=== PATIENT | female | born 1950 | race Caucasian/White ===

== ENCOUNTER → 2016-09-27 | Outpatient (REF) | payer OTHER, BC | LOC: M LAB REF 12:05 | PROVIDERS: ATTEND Internal Medicine | DX: M10.9 Gout, unspecified (principal) ==

== ENCOUNTER → 2016-10-19 | Outpatient (REF) | payer OTHER, BC ==
[2016-10-19 12:26] LABS: CREATININE FOR GFR 1.13 MG/DL (0.55-1.02); GLOMERULAR FILTRATION RATE 51.6 (>45)
== END ==
LOC: M LABDRAW1 11:36
PROVIDERS: ATTEND Orthopaedic Surgery
DX: M77.11 Lateral epicondylitis, right elbow (principal)

== ENCOUNTER 2017-01-16 05:24 | Emergency (ER) | payer BC, OTHER ==
[~2017-01-16] VITALS: Ht 162.6 cm; Wt 93.2 kg
[2017-01-16] MEDS ORDERED: VENL150C43 (05:39)
[2017-01-16] MEDS ORDERED: ATEN50TA2 (05:39)
[2017-01-16] MEDS ORDERED: LEVE1INJ5 (05:39)
[2017-01-16] MEDS ORDERED: BUPR150T3 (05:39)
[2017-01-16] MEDS ORDERED: LOSA100T36 (05:39)
[2017-01-16] MEDS ORDERED: TRUL0.5I (05:39)
[2017-01-16] MEDS ORDERED: CLINDAMYCIN 150 MG CAP PO ONE (07:15)
[2017-01-16] MEDS ORDERED: PERCOCET 5MG/325MG TAB PO ONE (07:15)
[2017-01-16 08:24] LABS: BASO % 0.5 % (0.0-1.0); EOS # 0.1 K/mm3 (0.0-0.50); EOS % 1.2 % (0.0-3.0); LARGE UNSTAINED CELL # 0.1 K/mm3 (0.0-0.4); LARGE UNSTAINED CELL % 1.3 % (0.0-4.0); LYMPH % 9.5 % (24.0-44.0); MEAN CORPUSCULAR HEMOGLOBIN 27.7 pg (27.0-33.0); MEAN CORPUSCULAR HGB CONC 32.9 g/dl (32.0-36.5); MEAN CORPUSCULAR VOLUME 84.3 fl (80.0-96.0); MONO # 0.6 K/mm3 (0.0-0.8); MONO % 6.1 % (0.0-5.0); NEUTROPHILS # 7.6 K/mm3 (1.8-7.7); NEUTROPHILS % 81.4 % (36.0-66.0); PLATELET COUNT, AUTOMATED 236 k/mm3 (150-450); RED CELL DISTRIBUTION WIDTH 14.2 % (11.5-14.5); WHITE BLOOD COUNT 9.3 K/mm3 (4.0-10.0)
[2017-01-16] MEDS ORDERED: PERC5TAB12 PO (08:31)
[2017-01-16 08:36] LABS: ANION GAP 9 MEQ/L (8-16); BLOOD UREA NITROGEN 19 MG/DL (7-18); CALCIUM LEVEL 8.6 MG/DL (8.8-10.2); CARBON DIOXIDE LEVEL 24 MEQ/L (21-32); CHLORIDE LEVEL 109 MEQ/L (98-107); CREATININE FOR GFR 0.97 MG/DL (0.55-1.02); GLOMERULAR FILTRATION RATE > 60.0 (>45); GLUCOSE, FASTING 110 MG/DL (80-110); POTASSIUM SERUM 4.6 MEQ/L (3.5-5.1); SODIUM LEVEL 142 MEQ/L (136-145)
[2017-01-16] MEDS ORDERED: CLEO300C2 PO (08:39)
[2017-01-16 08:42] VITALS: BP 165/86
[2017-01-16 09:26] LABS: ERYTHROCYTE SEDIMENTATION RATE 13 mm/hr (0-30)
--- NOTE | 2017-01-16 11:13 | REP ---
Left ankle series: Four views. History: Pain and swelling. Findings: Four views of the left ankle demonstrate Achilles and plantar calcaneal spurring. There is advanced diffuse vascular calcification. Ankle mortise is intact. No fracture or subluxation is seen. 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 Soft tissue swelling is seen along the course of the Achilles tendon, question Achilles tendinopathy. Signed by Rangel Garcia MD 01/16/2017 12:33 P
== END 2017-01-16 08:55 | disposition home or self-care (01) ==
LOC: M ED 05:24
DX: M76.62 Achilles tendinitis, left leg (principal); L03.116 Cellulitis of left lower limb; E11.9 Type 2 diabetes mellitus without complications; E78.4 Other hyperlipidemia; Z87.891 Personal history of nicotine dependence

== ENCOUNTER → 2017-01-26 | Outpatient (REF) | payer OTHER ==
[~2017-01-26] MED LIST: ATEN50TA2; BUPR150T3; CLEO300C2 PO; LEVE1INJ5; LOSA100T36; PERC5TAB12 PO; TRUL0.5I; VENL150C43
== END ==
LOC: M LAB REF 14:22
PROVIDERS: ATTEND Internal Medicine
DX: M10.9 Gout, unspecified (principal)

== ENCOUNTER → 2017-02-21 | Outpatient (REF) | payer OTHER | LOC: M LAB REF 17:21 | PROVIDERS: ATTEND Internal Medicine | DX: M10.9 Gout, unspecified (principal) ==

== ENCOUNTER → 2017-03-16 | Outpatient (CLI) | payer OTHER ==
--- NOTE | 2017-03-16 09:26 | REPMRS ---
Patient History The patient states she had a clinical breast exam in January 2017. Patient is postmenopausal. Family history of unknown cancer in father. Benign lumpectomy of the right breast. Digital Mammo Screening Bilat: March 16, 2017 - Exam #: [id number] Bilateral CC and MLO view(s) were taken. Technologist: Yesy Vicenet, Technologist Prior study comparison: March 15, 2016, bilateral digital mammo screening bilat performed at [facility]. February 26, 2015, bilateral digital mammo screening bilat performed at [facility]. FINDINGS: There are scattered fibroglandular densities. There is a fairly symmetric fibroglandular pattern in both breasts. There has been no interval development of masses, areas of architectural distortion or clusters of microcalcifications typical of malignancy. ASSESSMENT: BI-RADS/ACR category 2 mammogram. Benign finding(s). Recommendation Routine screening mammogram of both breasts in 1 year (for women over age 40). This mammogram was interpreted with the aid of an FDA-approved computer-aided dectection system. Electronically Signed By: Marcus Phillips MD 03/16/17 [id number]
== END ==
LOC: M RAD 08:13
PROVIDERS: ATTEND Internal Medicine
DX: Z12.31 Encounter for screening mammogram for malignant neoplasm of breast (principal); Z78.0 Asymptomatic menopausal state

== ENCOUNTER → 2017-05-01 | Outpatient (REF) | payer OTHER | LOC: M LAB REF 13:54 | PROVIDERS: ATTEND Internal Medicine | DX: M10.9 Gout, unspecified (principal) ==

== ENCOUNTER 2017-12-23 14:58 | Emergency (ER) | payer MEDICARE, OTHER | END 2017-12-23 16:09 | disposition home or self-care (01) | LOC: M ED 14:58 | DX: M54.5 Low back pain (principal); M25.562 Pain in left knee; I10 Essential (primary) hypertension; E11.9 Type 2 diabetes mellitus without complications; F33.9 Major depressive disorder, recurrent, unspecified; Z79.899 Other long term (current) drug therapy; Z79.4 Long term (current) use of insulin; Z87.891 Personal history of nicotine dependence | CPT/HCPCS: 99283 ==

== ENCOUNTER → 2018-01-10 | Outpatient (REF) | payer MEDICARE, OTHER ==
[2018-01-10 19:23] LABS: C REACTIVE PROTEIN QUANTITATIV < 0.30 MG/DL (0.00-0.30)
[2018-01-10 19:23] LABS: RHEUMATOID FACTOR QUANT 32.1 IU/ML (<15.0)
[2018-01-10 19:34] LABS: ERYTHROCYTE SEDIMENTATION RATE 8 mm/hr (0-30)
[2018-01-12 14:46] LABS: ANTINUCLEAR ANTIBODIES DIRECT Negative (Negative)
== END ==
LOC: M LAB REF 17:29
DX: M79.643 Pain in unspecified hand (principal)
CPT/HCPCS: 86140

== ENCOUNTER → 2018-01-18 | Outpatient (REF) | payer MEDICARE, OTHER ==
[2018-01-20 00:06] LABS: CYCLIC CITRULLINATED PEPTIDE 8 units (0-19)
== END ==
LOC: M LAB REF 12:40
DX: M19.90 Unspecified osteoarthritis, unspecified site (principal)
CPT/HCPCS: 86200

== ENCOUNTER → 2018-05-02 | Outpatient (REF) | payer MEDICARE, OTHER ==
[2018-05-02 12:36] LABS: C REACTIVE PROTEIN QUANTITATIV < 0.30 MG/DL (0.00-0.30); RHEUMATOID FACTOR QUANT 28.9 IU/ML (<15.0)
[2018-05-03 13:04] LABS: URIC ACID 5.4 MG/DL (2.6-6.0)
== END ==
LOC: M LAB REF 12:05
DX: M19.90 Unspecified osteoarthritis, unspecified site (principal); M10.9 Gout, unspecified
CPT/HCPCS: 84550

== ENCOUNTER → 2018-09-11 | Outpatient (REF) | payer MEDICARE, OTHER ==
[~2018-09-11] MED LIST changes: +ACET-716 PO; +ATEN50TA2 PO; +IBUP80TA PO; +LEVE1INJ5 SC; -LOSA100T36; +LOSA100T50; +METF10004 PO; +METH1TAB40 PO; +OXYC1TAB15 PO; +TYLE500T78 PO
[2018-09-11 13:00] LABS: C REACTIVE PROTEIN QUANTITATIV < 0.30 MG/DL (0.00-0.30); RHEUMATOID FACTOR QUANT 19.2 IU/ML (<15.0)
== END ==
LOC: M LAB REF 12:14
PROVIDERS: ATTEND Internal Medicine
DX: M25.511 Pain in right shoulder (principal); M25.561 Pain in right knee

== ENCOUNTER → 2018-10-09 | Outpatient (REF) | payer MEDICARE, OTHER ==
[2018-10-09 19:15] LABS: PERCENT SATURATION 19.5 % (13.2-45.0)
== END ==
LOC: M LAB REF 18:23
PROVIDERS: ATTEND Internal Medicine
DX: Z01.812 Encounter for preprocedural laboratory examination (principal); D64.9 Anemia, unspecified; M17.11 Unilateral primary osteoarthritis, right knee

== ENCOUNTER → 2019-02-11 | Outpatient (REF) | payer MEDICARE, OTHER | LOC: M LAB REF 12:39 | PROVIDERS: ATTEND Internal Medicine | DX: M10.9 Gout, unspecified (principal) ==

== ENCOUNTER → 2019-08-12 | Outpatient (CLI) | payer MEDICARE, OTHER ==
--- NOTE | 2019-08-12 15:29 | REP ---
CT ABDOMEN AND PELVIS WITHOUT IV AND ORAL CONTRAST: HISTORY: Incisional hernia. Without obstruction. No comparison study. 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 The lung bases are clear on axial CT images. The liver is normal in size, homogeneous in texture. No abnormality is noted in the gallbladder. The spleen is unremarkable. Mitral annular calcification is noted in the heart. No adrenal lesion is seen on either side. No abnormality is noted in the pancreas. There is cortical atrophy involving the left kidney. There is a cyst at the left mid kidney peripherally measuring 3.7 cm in diameter. There is an intrarenal calculus in the lower pole of the left kidney which measures 7 mm in diameter. Heavy vascular calcification is noted at the origin of the renal artery on the left. The right kidney contains a faintly visible 1-2 mm calcification at mid pole level. No hydronephrosis is seen. No ureteral calculus is observed. No uterine or ovarian abnormality is seen. Urinary bladder is unremarkable. The patient is status post ventral hernia repair. There is a fluid collection consistent with a seroma anterior to the mesh repair in the supraumbilical region. Below this there is a ventral hernia transmitting unobstructed loops of large and small bowel. It appears that the ileocecal valve and cecum are within the hernia sac in addition to small bowel loops. There is some induration of the subcutaneous fat and dermal thickening in the abdominal wall at and above the level of the hernia repair. 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 IMPRESSION: 1. Complex ventral hernia just caudal to a previous ventral hernia repair. There appears to be a seroma cavity anterior to the previous mesh repair site. Small and right colon loops are herniated without evidence of obstruction. 2. Left renal atrophy and intrarenal nephrolithiasis. 3. Left renal cyst. Heavy vascular calcification. Electronically Signed by Rangel Garcia MD 08/12/2019 04:23 P
== END ==
LOC: M RAD 14:26
PROVIDERS: ATTEND Surgery
DX: N20.0 Calculus of kidney (principal); N28.1 Cyst of kidney, acquired; K43.2 Incisional hernia without obstruction or gangrene

== ENCOUNTER → 2021-06-16 | Outpatient (CLI) | payer MEDICARE, OTHER ==
[~2021-06-16] MED LIST changes: +BUPR150T12; -BUPR150T3; +LOSA100T45; -LOSA100T50; +METH-1164 PO; -METH1TAB40 PO; -OXYC1TAB15 PO; +OXYC7.5T3 PO
== END ==
LOC: M WHC 14:01
PROVIDERS: ATTEND Internal Medicine
DX: Z12.31 Encounter for screening mammogram for malignant neoplasm of breast (principal); Z78.0 Asymptomatic menopausal state

== ENCOUNTER → 2021-09-07 | Outpatient (REF) | payer MEDICARE, OTHER | LOC: M LAB REF 16:14 | PROVIDERS: ATTEND Internal Medicine | DX: M10.9 Gout, unspecified (principal) ==

== ENCOUNTER → 2021-11-04 | Outpatient (CLI) | payer MEDICARE, OTHER | LOC: M WUC 12:05 | PROVIDERS: ATTEND Nurse Practitioner Family | DX: M85.88 Other specified disorders of bone density and structure, other site (principal); M25.762 Osteophyte, left knee ==

== ENCOUNTER → 2021-11-10 | Outpatient (REF) | payer MEDICARE, OTHER ==
[2021-11-10 16:55] LABS: BACTERIA, URINE AUTO 1+ (NEGATIVE); MUCUS, URINE SMALL (NEGATIVE); RBC, URINE AUTO 15 /HPF (0-3); SQUAMOUS EPITHELIAL CELL UR AU 4 /HPF (0-6); TRANSITIONAL EPITHELIAL AUTO 5 /HPF; WBC, URINE AUTO TNTC /HPF (0-3)
== END ==
LOC: M LAB REF 16:08
PROVIDERS: ATTEND Internal Medicine
DX: N39.0 Urinary tract infection, site not specified (principal)

== ENCOUNTER → 2021-11-13 | Outpatient (CLI) | payer MEDICARE, OTHER ==
[~2021-11-13] MED LIST changes: +ACET325C5 PO; +ALLO100T PO; +ALPR0.25; +AMLO2.5T3 PO; +ATOR1TAB21; +CLON0.5T2; +DULA3PEN; +ECOT81TA5 PO; +GABA-282 PO; +HYDR-643 PO; +LOSA100T45 PO; +NORT25CA2; +OCUVTAB4 PO; +VENL150C43 PO; +VITA100093 PO
== END ==
LOC: M EKG 09:06
PROVIDERS: ATTEND Internal Medicine
DX: R00.2 Palpitations (principal); Z53.9 Procedure and treatment not carried out, unspecified reason

== ENCOUNTER → 2021-12-02 | Outpatient (CLI) | payer MEDICARE, OTHER | LOC: M LABSMTC 09:20 | PROVIDERS: ATTEND Anesthesiology | DX: Z01.812 Encounter for preprocedural laboratory examination (principal); Z11.52 Encounter for screening for COVID-19; U07.1 COVID-19 ==

== ENCOUNTER → 2022-05-08 | Outpatient (CLI) | payer MEDICARE, OTHER ==
[~2022-05-08] MED LIST changes: -ATOR1TAB21; +ATOR1TAB21 PO; +MELA10CA PO; +TIRZ5PEN SC
== END ==
LOC: M LABSMTC 11:45
PROVIDERS: ATTEND Anesthesiology
DX: Z01.812 Encounter for preprocedural laboratory examination (principal); Z11.52 Encounter for screening for COVID-19

== ENCOUNTER 2022-05-12 07:21 | Day surgery (SDC) | payer MEDICARE, OTHER ==
[~2022-05-12] VITALS: Ht 162.6 cm; Wt 87.9 kg
[~2022-05-12 07:21] MED LIST changes: +NS 1,000 ML IV ONE
[2022-05-12] MEDS ORDERED: PHENYLEPHRINE 0.5% NASAL SPRAY 15 ML As Ordered ONE (09:12)
[2022-05-12] MEDS ORDERED: propofoL 200 MG/20 ML VIAL As Ordered ONE (09:12)
[2022-05-12] MEDS ORDERED: LIDOCAINE 2% 100MG/5ML SDV (FOR ANES.) As Ordered ONE (09:12)
[2022-05-12 09:30] VITALS: BP 128/77
== END 2022-05-12 09:47 | disposition home or self-care (01) ==
LOC: M OPP 07:21
PROVIDERS: ATTEND Surgery
DX: Z12.11 Encounter for screening for malignant neoplasm of colon (principal); Z86.010 Personal history of colon polyps; Z79.02 Long term (current) use of antithrombotics/antiplatelets; Z79.4 Long term (current) use of insulin; Z79.82 Long term (current) use of aspirin; Z79.899 Other long term (current) drug therapy; I10 Essential (primary) hypertension; E11.9 Type 2 diabetes mellitus without complications; F32.9 Major depressive disorder, single episode, unspecified; F41.9 Anxiety disorder, unspecified; M19.90 Unspecified osteoarthritis, unspecified site; E78.00 Pure hypercholesterolemia, unspecified; Z68.25 Body mass index [BMI] 25.0-25.9, adult; Z87.39 Personal history of other diseases of the musculoskeletal system and connective tissue; Z80.1 Family history of malignant neoplasm of trachea, bronchus and lung; Z80.6 Family history of leukemia; Z87.891 Personal history of nicotine dependence

== ENCOUNTER → 2022-12-23 | Outpatient (CLI) | payer MEDICARE, OTHER ==
[~2022-12-23] MED LIST changes: +INSU100I6; +INSU100I6 SC; -LEVE1INJ5; -LEVE1INJ5 SC; -LOSA100T45; -LOSA100T45 PO; +LOSA100T46; +LOSA100T46 PO; -NS 1,000 ML IV ONE
== END ==
LOC: M RAD 07:18
PROVIDERS: ATTEND Internal Medicine
DX: R09.89 Other specified symptoms and signs involving the circulatory and respiratory systems (principal)

== ENCOUNTER → 2023-01-04 | Outpatient (CLI) | payer MEDICARE, OTHER | LOC: M RAD 09:00 | PROVIDERS: ATTEND Internal Medicine | DX: Z12.2 Encounter for screening for malignant neoplasm of respiratory organs (principal); F17.211 Nicotine dependence, cigarettes, in remission; R91.8 Other nonspecific abnormal finding of lung field ==

== ENCOUNTER 2023-03-20 10:35 | Day surgery (SDC) | payer MEDICARE, OTHER ==
[~2023-03-20] VITALS: Ht 162.6 cm; Wt 85.3 kg
[~2023-03-20 10:35] MED LIST changes: +BUPR75TA5 PO; +FARX1TAB5 PO; +INSU100I48 SQ
[2023-03-20] MEDS ORDERED: LR 1,000 ML IV SCH (11:00)
[2023-03-20] MEDS ORDERED: INSULIN LISPRO (NovoLOG) PER UNIT SC PRN (11:00)
[2023-03-20 11:12] LABS: HEMATOCRIT 43.2 % (36.0-47.0); HEMOGLOBIN 13.4 g/dl (12.0-15.5); MEAN CORPUSCULAR HEMOGLOBIN 26.9 pg (27.0-33.0); MEAN CORPUSCULAR VOLUME 86.7 fl (80.0-96.0); PLATELET COUNT, AUTOMATED 257 10^3/uL (150-450); RED BLOOD COUNT 4.98 10^6/uL (4.00-5.40); WHITE BLOOD COUNT 7.1 10^3/uL (4.0-10.0)
[2023-03-20] MEDS ORDERED: LIDOCAINE 2% 100MG/5ML SDV (FOR ANES.) As Ordered ONE (11:55)
[2023-03-20] MEDS ORDERED: fentaNYL 100 MCG/2 ML INJECTION As Ordered ONE (11:55)
[2023-03-20] MEDS ORDERED: MIDAZOLAM INJ 2MG/2ML VIAL As Ordered ONE (11:55)
[2023-03-20] MEDS ORDERED: propofoL 200 MG/20 ML VIAL As Ordered ONE (11:55)
[2023-03-20] MEDS ORDERED: ONDANSETRON 4MG 2ML VIAL As Ordered ONE ×2 (11:56→12:18)
[2023-03-20] MEDS ORDERED: ACETAMINOPHEN 1000MG 100ML IV BAG As Ordered ONE (12:18)
[2023-03-20] MEDS ORDERED: BOTOX THERAPEUTIC 100 UNIT VIAL As Ordered ONE ×2 (12:32→12:42)
[2023-03-20 13:56] VITALS: BP 114/59; TEMP 98; O2SAT 98
[2023-03-21 10:38] LABS: CALCIUM LEVEL 9.5 MG/DL (8.8-10.2); GLOMERULAR FILTRATION RATE 58.4 (>39); POTASSIUM SERUM 4.7 MEQ/L (3.6-5.0)
== END 2023-03-20 14:10 | disposition home or self-care (01) ==
LOC: M SDC 10:35
PROVIDERS: ATTEND Surgery
DX: M62.08 Separation of muscle (nontraumatic), other site (principal); K43.2 Incisional hernia without obstruction or gangrene; K43.9 Ventral hernia without obstruction or gangrene; E66.01 Morbid (severe) obesity due to excess calories; Z68.32 Body mass index [BMI] 32.0-32.9, adult; E11.9 Type 2 diabetes mellitus without complications; Z79.899 Other long term (current) drug therapy; Z79.85 Long-term (current) use of injectable non-insulin antidiabetic drugs; Z79.84 Long term (current) use of oral hypoglycemic drugs
CPT/HCPCS: 36415; 64647; 80048; 85027; 93005; J0131; J0585; J0665; J1100; J2250; J2405; J3010

== ENCOUNTER 2023-04-24 06:14 | Day surgery (SDC) | payer MEDICARE, OTHER ==
[~2023-04-24] VITALS: Ht 162.6 cm; Wt 89.6 kg
[~2023-04-24 06:14] MED LIST changes: +CelecoXIB 400 MG CAP PO ONE; +HEPARIN SOD (PORCINE) 5000UNITS/ML 1ML VIAL/SYRINGE SQ ONE; +ceFAZolin SOD 2 GM in IV 1 EA IV ONE
[2023-04-24 06:40] VITALS: BP 140/80; TEMP 100.5; O2SAT 96
== END 2023-04-24 06:40 | disposition home or self-care (01) ==
LOC: M SDC 06:14 → UNDOADMIN 06:14 → M OR 06:14 → M SDC 06:40 → EDSTATUS 07:30
PROVIDERS: ATTEND Surgery
DX: Z53.9 Procedure and treatment not carried out, unspecified reason (principal)

== ENCOUNTER → 2023-04-25 | Outpatient (REF) | payer MEDICARE, OTHER ==
[~2023-04-25] MED LIST changes: -CelecoXIB 400 MG CAP PO ONE; -HEPARIN SOD (PORCINE) 5000UNITS/ML 1ML VIAL/SYRINGE SQ ONE; -ceFAZolin SOD 2 GM in IV 1 EA IV ONE
[2023-04-25 13:38] LABS: APPEARANCE, URINE HAZY (CLEAR); BACTERIA, URINE AUTO NEGATIVE (NEGATIVE); BILIRUBIN, URINE AUTO NEGATIVE (NEGATIVE); BLOOD, URINE BLOOD 1+ (NEGATIVE); COLOR, URINE YELLOW (YELLOW); GLUCOSE, URINE (UA) AUTO 3+ mg/dL (NEGATIVE); KETONE, URINE AUTO NEGATIVE (NEGATIVE); LEUKOCYTE ESTERASE, URINE AUTO 2+ (NEGATIVE); NITRITE, URINE AUTO NEGATIVE (NEGATIVE); PROTEIN, URINE AUTO 2+ mg/dL (NEGATIVE); RBC, URINE AUTO 2 /HPF (0-3); SQUAMOUS EPITHELIAL CELL UR AU 1 /HPF (0-6); UROBILINOGEN, URINE AUTO 0.2 mg/dL (0.0-2.0); WBC, URINE AUTO TNTC /HPF (0-3)
[2023-04-25 14:23] LABS: RSV AMPLIFICATION NEGATIVE (NEGATIVE)
== END ==
LOC: M LAB REF 12:04
PROVIDERS: ATTEND Internal Medicine
DX: R09.81 Nasal congestion (principal); R30.0 Dysuria

== ENCOUNTER → 2023-05-18 | Outpatient (CLI) | payer MEDICARE, OTHER | LOC: M WHC 12:45 | PROVIDERS: ATTEND Internal Medicine | DX: Z12.31 Encounter for screening mammogram for malignant neoplasm of breast (principal) ==

== ENCOUNTER → 2023-09-22 | Outpatient (CLI) | payer MEDICARE, OTHER | LOC: M PLAIMG 08:05 | PROVIDERS: ATTEND Internal Medicine | DX: M54.41 Lumbago with sciatica, right side (principal); M47.816 Spondylosis without myelopathy or radiculopathy, lumbar region; M47.817 Spondylosis without myelopathy or radiculopathy, lumbosacral region ==

== ENCOUNTER → 2024-02-05 | Outpatient (REF) | payer MEDICARE, OTHER | LOC: M LAB REF 16:22 | PROVIDERS: ATTEND Internal Medicine | DX: M10.9 Gout, unspecified (principal) ==

== ENCOUNTER → 2024-02-22 | Outpatient (CLI) | payer MEDICARE, OTHER | LOC: M PLAIMG 08:11 | PROVIDERS: ATTEND Internal Medicine | DX: R91.1 Solitary pulmonary nodule (principal) ==

== ENCOUNTER → 2024-06-24 | Outpatient (CLI) | payer MEDICARE, OTHER ==
[~2024-06-24] MED LIST changes: +GABA-1172 PO; -GABA-282 PO
== END ==
LOC: M WHC 09:13
PROVIDERS: ATTEND Internal Medicine
DX: Z12.31 Encounter for screening mammogram for malignant neoplasm of breast (principal); R92.323 Mammographic fibroglandular density, bilateral breasts

== ENCOUNTER → 2025-02-11 | Outpatient (REF) | payer MEDICARE, OTHER | LOC: M LAB REF 14:20 | PROVIDERS: ATTEND Internal Medicine | DX: N18.31 Chronic kidney disease, stage 3a (principal) ==